=== PATIENT | female | born 1930 | race Caucasian/White ===

== ENCOUNTER 2018-10-27 22:11 | Emergency (ER) | payer MEDICARE ==
[~2018-10-27] VITALS: Ht 165.1 cm; Wt 102.5 kg
[~2018-10-27 22:11] MED LIST: ACET325T9 PO; ALBU2.5V8 INH; ALLO300T67 PO; AMLO10TA8 PO; ATOR20TA PO; BENA10TA4; BENA20TA4 PO; BISA10SU55 RC; CITA20TA6 PO; CITA20TA9 PO; CRAN300T PO; CYCL10TA2 PO; DOCU-109 PO; FURO20TA3 PO; GUAI-305 PO; INSU100C SQ; INSU100V SQ; INSU100V8 SQ; LACT1CAP6 PO; LOPE2CAP88 PO; MENT118G TP; METO25TA4 PO; MULT1TAB52 PO; MUPI22OI2 TP; NABU500T PO; NYST15CR TP; NYST15PO9 TP; OMEP20CA5 PO; OXYC1TAB19 PO; PED18TAB2 PO; POLY17PO29 PO; RANI-376 PO; RISP0.5T10 PO; TRAZ-118 PO; XOPENEX0.63 MG/3 NEB
[2018-10-27] MEDS ORDERED: fentaNYL PF VIAL 100 MCG/2 ML VIAL IV ONE (22:30)
[2018-10-27 23:34] LABS: BASO # 0.1 x10^3/uL (0.0-0.2); BASO % 1 % (0-3); EOS # 0.2 x10^3/uL (0.0-0.7); EOS % 2 % (0-3); HEMATOCRIT 38.2 % (36.0-47.0); HEMOGLOBIN 11.9 g/dL (12.0-15.5); LYMPH # 1.4 x10^3/uL (1.0-4.8); LYMPH % 12 % (24-48); MEAN CORPUSCULAR HEMOGLOBIN 29 pg (25-35); MEAN CORPUSCULAR HGB CONC 31 g/dL (31-37); MEAN CORPUSCULAR VOLUME 92 fL (79-100); MONO # 0.6 x10^3/uL (0.0-1.1); MONO % 6 % (0-9); NEUT # 8.9 x10^3uL (1.8-7.7); NEUT % 80 % (31-73); PLATELET COUNT 189 x10^3/uL (140-400); RED BLOOD COUNT 4.14 x10^6/uL (3.50-5.40); RED CELL DISTRIBUTION WIDTH 16.2 % (11.5-14.5); WHITE BLOOD COUNT 11.1 x10^3/uL (4.0-11.0)
--- NOTE | 2018-10-27 23:34 | RAD ---
EXAM: AP and lateral views of the left knee DATE: 10/27/2018 10:23 PM INDICATION: fell tonight COMPARISON: No Prior FINDINGS: Postoperative changes of left total knee arthroplasty, in good alignment without definite hardware complication. Of note, the patella may be borderline high with apparent thickening of the patellar tendon, possibly patellar tendinosis although superimposed tear is not entirely excluded. Prepatellar soft tissue swelling is also seen. Knee joint effusion. Atherosclerotic vascular calcifications are seen. Soft tissue calcifications are seen, likely dystrophic. IMPRESSION: Soft tissue thickening of the patellar tendon silhouette with borderline high riding patella may be seen with with patellar tendon tear or tendinosis. Otherwise no evidence for acute fracture or dislocation. Electronically signed by: Nam Sandoval MD (10/27/2018 11:31 PM) [facility]
--- NOTE | 2018-10-27 23:41 | RAD ---
PQRS Compliance statement: One or more of the following individualized dose reduction techniques were utilized for this examination: 1. Automated exposure control. 2. Adjustment of the mA and/or kV according to patient size. 3. Use of iterative reconstruction technique. Indication:pt fell; pain and bruising to head TECHNIQUE: CT head without IV contrast COMPARISON:11/25/2013 FINDINGS: No pathologic extra-axial or intra-axial fluid collection. 2.8 x 2.3 cm area of encephalomalacia in the right cerebellar hemisphere most likely old infarct. Mild diffuse cerebral atrophy with ex vacuo dilation of the ventricles. Basal cisterns are within normal limits. No acute intracranial bleed. No focal loss of mcknight-white differentiation. 8 mm right anterior frontal scalp hematoma. No acute calvarial fracture. The paranasal sinuses and mastoid air cells are clear. IMPRESSION: 1. Small anterior frontal scalp hematoma. No acute fractures. 2. Mild diffuse atrophy.. No acute intracranial bleed. 3. 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 Clinically correlate with history. Indication:pt fell; pain and bruising to head TECHNIQUE: CT of the maxillofacial bones without IV contrast multiplanar reformats. COMPARISON: None FINDINGS: The nasal septum is midline. The nasal bones are within normal limits. The bilateral zygoma and zygomatic arch is within normal limits. Bilateral external auditory canals and inner ear cavities are within normal limits. Bilateral pterygoid plates are within normal limits. Bilateral temporomandibular joints and mandible are within normal limits. Bilateral temporomandibular joint osteoarthritis. The paranasal sinuses and mastoid air cells are within normal limits. The globes, extraocular muscles and intraorbital fat are within normal limits. Facet arthropathy seen in the visualized upper cervical spine. Soft tissue swelling and small hematoma of the anterior frontal scalp. The noncontrast appearance of the suprahyoid neck soft tissues is within normal limits. IMPRESSION: 1. No acute fractures. 2. Anterior frontal scalp swelling and small hematoma. Electronically signed by: Orestes Romo DO (10/27/2018 11:38 PM) [facility]
[2018-10-27 23:42] LABS: CALCIUM 8.8 mg/dL (8.5-10.1); CREATININE 1.6 mg/dL (0.6-1.0); GFR 30.3; POTASSIUM 3.7 mmol/L (3.5-5.1)
[2018-10-27 23:47] LABS: ALBUMIN 2.9 g/dL (3.4-5.0); ALBUMIN/GLOBULIN RATIO 0.8 (1.0-1.7); TOTAL BILIRUBIN 0.3 mg/dL (0.2-1.0); TOTAL PROTEIN 6.7 g/dL (6.4-8.2)
[2018-10-28 00:04] LABS: PROTHROMBIN TIME PATIENT 13.7 SEC (11.7-14.0)
--- NOTE | 2018-10-28 00:54 | PHYS DOC ---
Past Medical History Past Medical History: Arthritis, Dementia, Diabetes-Type II, Hypertension, NC, Other Additional Past Medical Histor: CKD, SPINAL STENOSIS, DYSPHAGIA, HERNIA Past Surgical History: Pacemaker Additional Past Surgical Histo: bilateral knee surgery, cyst removal from breast Alcohol Use: None Drug Use: None Adult General Chief Complaint Chief Complaint: MECHANICAL FALL HPI HPI Patient is a 87 year old female who presents with a skin tear and contusions to her knee and head after she fell at [facility] assisted living this evening. She denies LOC or use of blood thinners. She arrived via EMS. Review of Systems Review of Systems Constitutional: Denies fever or chills [] Eyes: Denies change in visual acuity, redness, or eye pain [] HENT: Denies nasal congestion or sore throat [] Respiratory: Denies cough or shortness of breath [] Cardiovascular: No additional information not addressed in HPI [] GI: Denies abdominal pain, nausea, vomiting, bloody stools or diarrhea [] : Denies dysuria or hematuria [] Musculoskeletal: See HPI Integument: See HPI Neurologic: See HPI Endocrine: Denies polyuria or polydipsia [] All other systems were reviewed and found to be within normal limits, except as documented in this note. Current Medications Current Medications Current Medications Medications (Trade) Dose Ordered Sig/Tim Start Time Stop Time Status Last Admin Dose Admin Fentanyl Citrate (Fentanyl 2ml Vial) 50 mcg 1X ONCE 10/27/18 22:30 10/27/18 22:31 DC 10/27/18 23:33 50 MCG Allergies Allergies Allergies Coded Allergies Type Severity Reaction Last Updated Verified Penicillins Allergy Intermediate Rash 11/25/13 Yes Physical Exam Physical Exam Constitutional: Well developed, well nourished, no acute distress, non-toxic appearance. [] HENT: Normocephalic, abrasion to right forehead, bilateral external ears normal, oropharynx moist, no oral exudates, nose normal. [] Eyes: PERRLA, EOMI, conjunctiva normal, no discharge. [] Neck: Normal range of motion, no tenderness, supple, no stridor. [] Cardiovascular:Heart rate regular rhythm, no murmur [] Lungs & Thorax: Bilateral breath sounds clear to auscultation [] Abdomen: Bowel sounds normal, soft, no tenderness, no masses, no pulsatile masses. [] Skin: skin tear to right forearm, bleeding controlled, dressing applied Back: No tenderness, no CVA tenderness. [] Extremities: tenderness to left knee, no cyanosis, no clubbing, ROM intact, mild edema. [] Neurologic: Alert and oriented X 3, normal motor function, normal sensory function, no focal deficits noted. [] Psychologic: Affect normal, judgement normal, mood normal. [] Current Patient Data Vital Signs Lab Values Laboratory Tests Test 10/27/18 23:30 White Blood Count 11.1 x10^3/uL (4.0-11.0) H Red Blood Count 4.14 x10^6/uL (3.50-5.40) Hemoglobin 11.9 g/dL (12.0-15.5) L Hematocrit 38.2 % (36.0-47.0) Mean Corpuscular Volume 92 fL (79-100) Mean Corpuscular Hemoglobin 29 pg (25-35) Mean Corpuscular Hemoglobin Concent 31 g/dL (31-37) Red Cell Distribution Width 16.2 % (11.5-14.5) H Platelet Count 189 x10^3/uL (140-400) Neutrophils (%) (Auto) 80 % (31-73) H Lymphocytes (%) (Auto) 12 % (24-48) L Monocytes (%) (Auto) 6 % (0-9) Eosinophils (%) (Auto) 2 % (0-3) Basophils (%) (Auto) 1 % (0-3) Neutrophils # (Auto) 8.9 x10^3uL (1.8-7.7) H Lymphocytes # (Auto) 1.4 x10^3/uL (1.0-4.8) Monocytes # (Auto) 0.6 x10^3/uL (0.0-1.1) Eosinophils # (Auto) 0.2 x10^3/uL (0.0-0.7) Basophils # (Auto) 0.1 x10^3/uL (0.0-0.2) Prothrombin Time 13.7 SEC (11.7-14.0) Prothrombin Time INR 1.1 (0.8-1.1) PTT 26 SEC (24-38) Sodium Level 144 mmol/L (136-145) Potassium Level 3.7 mmol/L (3.5-5.1) Chloride Level 104 mmol/L (98-107) Carbon Dioxide Level 32 mmol/L (21-32) Anion Gap 8 (6-14) Blood Urea Nitrogen 43 mg/dL (7-20) H Creatinine 1.6 mg/dL (0.6-1.0) H Estimated GFR (Cockcroft-Gault) 30.3 BUN/Creatinine Ratio 27 (6-20) H Glucose Level 154 mg/dL (70-99) H Calcium Level 8.8 mg/dL (8.5-10.1) Total Bilirubin 0.3 mg/dL (0.2-1.0) Aspartate Amino Transferase (AST) 10 U/L (15-37) L Alanine Aminotransferase (ALT) 11 U/L (14-59) L Alkaline Phosphatase 95 U/L (46-116) Total Protein 6.7 g/dL (6.4-8.2) Albumin 2.9 g/dL (3.4-5.0) L Albumin/Globulin Ratio 0.8 (1.0-1.7) L Laboratory Tests 10/27/18 23:30 Laboratory Tests 10/27/18 23:30 EKG EKG [] Radiology/Procedures Radiology/Procedures [][facility] [address] [place] [address] IMAGING REPORT Signed PATIENT: RASHAD CRAIN ACCOUNT: [id number] : 1930 LOCATION: ER AGE: 87 SEX: F EXAM STATUS: REG ER ORD. PHYSICIAN: JAN MATHEWS APRN REASON: fell tonight PROCEDURE: CT HEAD AND MAXILLOFACIAL WO PQRS Compliance statement: One or more of the following individualized dose reduction techniques were utilized for this examination: 1. Automated exposure control. 2. Adjustment of the mA and/or kV according to patient size. 3. Use of iterative reconstruction technique. Indication:pt fell; pain and bruising to head TECHNIQUE: CT head without IV contrast COMPARISON:11/25/2013 FINDINGS: No pathologic extra-axial or intra-axial fluid collection. 2.8 x 2.3 cm area of encephalomalacia in the right cerebellar hemisphere most likely old infarct. Mild diffuse cerebral atrophy with ex vacuo dilation of the ventricles. Basal cisterns are within normal limits. No acute intracranial bleed. No focal loss of mcknight-white differentiation. 8 mm right anterior frontal scalp hematoma. No acute calvarial fracture. The paranasal sinuses and mastoid air cells are clear. IMPRESSION: 1. Small anterior frontal scalp hematoma. No acute fractures. 2. Mild diffuse atrophy.. No acute intracranial bleed. 3. 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 Clinically correlate with history. Indication:pt fell; pain and bruising to head TECHNIQUE: CT of the maxillofacial bones without IV contrast multiplanar reformats. COMPARISON: None FINDINGS: The nasal septum is midline. The nasal bones are within normal limits. The bilateral zygoma and zygomatic arch is within normal limits. Bilateral external auditory canals and inner ear cavities are within normal limits. Bilateral pterygoid plates are within normal limits. Bilateral temporomandibular joints and mandible are within normal limits. Bilateral temporomandibular joint osteoarthritis. The paranasal sinuses and mastoid air cells are within normal limits. The globes, extraocular muscles and intraorbital fat are within normal limits. Facet arthropathy seen in the visualized upper cervical spine. Soft tissue swelling and small hematoma of the anterior frontal scalp. The noncontrast appearance of the suprahyoid neck soft tissues is within normal limits. IMPRESSION: 1. No acute fractures. 2. Anterior frontal scalp swelling and small hematoma. Electronically signed by: Orestes Romo DO (10/27/2018 11:38 PM) [facility] DICTATED and SIGNED BY: ORESTES ROMO DO DATE: 10/27/18 2323 [facility] [address] [place], [place] [id number] IMAGING REPORT Signed PATIENT: RASHAD CRAIN ACCOUNT: [id number] : 1930 LOCATION: ER AGE: 87 SEX: F EXAM STATUS: REG ER ORD. PHYSICIAN: JAN AMTHEWS APRN REASON: fell tonight PROCEDURE: KNEE LEFT 2V EXAM: AP and lateral views of the left knee DATE: 10/27/2018 10:23 PM INDICATION: fell tonight COMPARISON: No Prior FINDINGS: Postoperative changes of left total knee arthroplasty, in good alignment without definite hardware complication. Of note, the patella may be borderline high with apparent thickening of the patellar tendon, possibly patellar tendinosis although superimposed tear is not entirely excluded. Prepatellar soft tissue swelling is also seen. Knee joint effusion. Atherosclerotic vascular calcifications are seen. Soft tissue calcifications are seen, likely dystrophic. IMPRESSION: Soft tissue thickening of the patellar tendon silhouette with borderline high riding patella may be seen with with patellar tendon tear or tendinosis. Otherwise no evidence for acute fracture or dislocation. Electronically signed by: Nam Topete MD (10/27/2018 11:31 PM) [id number] DICTATED and SIGNED BY: NAM TOPETE MD DATE: 10/27/18 0661 Course & Med Decision Making Course & Med Decision Making Pertinent Labs and Imaging studies reviewed. (See chart for details) []The patients wound's were dressed and she was placed in a knee immobilizer. She is to follow up with orthopedics. Dragon Disclaimer Dragon Disclaimer This electronic medical record was generated, in whole or in part, using a voice recognition dictation system. Departure Departure Impression: Primary Impression: Injury of left patella Additional Impressions: Skin tear Hematoma Disposition: HOME, SELF-CARE Condition: STABLE Referrals: UNKNOWN PCP NAME (PCP) MIGUEL CHEN MD Patient Instructions: Hematoma, Patellar Tendon Tear/Disruption with Rehab-Spo rtsMed, Skin Tear Care Additional Instructions: Keep the wound clean and dry. Use the knee immobilizer for comfort. Follow up with orthopedics for evaluation of this possible patellar tendon tear. If worsening return to the emergency department. Problem Qualifiers JAN MATHEWS APRN Oct 28, 2018 00:53
[2018-10-28 01:34] VITALS: BP 106/65
== END 2018-10-28 01:50 | disposition home or self-care (01) ==
LOC: ER 22:11
DX: S51.811A Laceration without foreign body of right forearm, initial encounter (principal); S00.81XA Abrasion of other part of head, initial encounter; M25.562 Pain in left knee; Z95.0 Presence of cardiac pacemaker; F03.90 Unspecified dementia, unspecified severity, without behavioral disturbance, psychotic disturbance, mood disturbance, and anxiety; I25.2 Old myocardial infarction; E11.22 Type 2 diabetes mellitus with diabetic chronic kidney disease; I12.9 Hypertensive chronic kidney disease with stage 1 through stage 4 chronic kidney disease, or unspecified chronic kidney disease; N18.9 Chronic kidney disease, unspecified; Z88.0 Allergy status to penicillin; W18.39XA Other fall on same level, initial encounter; Y93.89 Activity, other specified; Y92.89 Other specified places as the place of occurrence of the external cause; Y99.8 Other external cause status
CPT/HCPCS: 29505; 36415; 70450; 70486; 73560; 80053; 85025; 85610; 85730; 96374; 99284; J3010